=== PATIENT | male | born 1970 | race Caucasian/White ===

== ENCOUNTER 2020-05-04 09:51 | Emergency (ER) | payer BC ==
[2020-05-04 10:17] VITALS: BP 151/92; PULSE 70; TEMP 98; BMI 33.6
[2020-05-04 11:49] LABS: BASO % 0.6 % (0-2.0); EOS % 0.5 % (0-4.5); HEMATOCRIT 42.2 % (35.4-49); HEMOGLOBIN 14.2 GM/dL (11.7-16.9); LYMPH % 25.3 % (8-40); MCH 26.1 pg (25.7-33.7); MCHC 33.5 g/dl (32.0-35.9); MEAN CELL VOLUME 77.9 fl (80-96); MEAN PLT VOLUME 8.8 fl (7.5-11.1); MONO % 10.4 % (3.8-10.2); NEUT % 63.2 % (42.8-82.8); PLATELET COUNT 146 K/MM3 (134-434); RBC 5.42 M/mm3 (4.00-5.60); RDW 12.7 % (11.9-15.9); WHITE BLOOD COUNT 3.5 K/mm3 (4.0-10.0)
[2020-05-04 11:56] LABS: INR 1.06 (0.83-1.09)
[2020-05-04 11:59] LABS: ACTIVATED PTT 30.4 SECONDS (25.2-36.5)
[2020-05-04 12:09] LABS: ALBUMIN 4.1 g/dl (3.4-5.0); BLOOD UREA NITROGEN 18.8 mg/dL (7-18)
[2020-05-04 12:11] LABS: BILIRUBIN,DIRECT 0.2 mg/dL (0.0-0.2)
[2020-05-04 12:12] LABS: CREATININE 0.9 mg/dL (0.55-1.3)
[2020-05-04 12:13] LABS: BILIRUBIN,TOTAL 0.6 mg/dL (0.2-1); TOT PROT 7.1 g/dl (6.4-8.2)
[2020-05-04 12:21] LABS: URINE APPEARANCE CLOUDY; URINE BILIRUBIN NEGATIVE (NEGATIVE); URINE COLOR DK YELLOW; URINE GLUCOSE (UA) NEGATIVE (NEGATIVE); URINE KETONE TRACE (NEGATIVE); URINE LEUK ESTERASE NEGATIVE (NEGATIVE); URINE NITRITE NEGATIVE (NEGATIVE); URINE PROTEIN TRACE (NEGATIVE)
[2020-05-04] MEDS ORDERED: DEXAMETHASONE SOD PHOSPHATE 10 MG/1 ML VIAL IVPUSH ONE (14:40)
[2020-05-04] MEDS ORDERED: DEXAMETHASONE SOD PHOSPHATE 4 MG/1 ML VIAL ONE (15:24)
== END 2020-05-04 17:13 | disposition home or self-care (01) ==
LOC: JER 09:51
PROC: 3E033NZ Introduction of Analgesics, Hypnotics, Sedatives into Peripheral Vein, Percutaneous Approach (ICD-10-PCS; principal; 2020-05-04)
DX: R07.9 Chest pain, unspecified (principal); Z11.52 Encounter for screening for COVID-19
CPT/HCPCS: 36415; 71260-TC; 80053; 81003; 82248; 82550; 82553; 82728; 83615; 84484; 85025; 85379; 85610; 85730; 86140; 93005; 93010; 99284-25; C9803; J1100; Q9967; U0003